=== PATIENT | female | born 1985 | race American Indian/Alaskan Native ===

== ENCOUNTER 2017-05-30 23:28 | Emergency (ER) | payer OTHER ==
--- NOTE | 2017-05-31 05:31 | Emergency Department Report ---
Abscess Boil HPI - HPI Chief Complaint: Skin/Abscess/Foreign Body Stated Complaint: ABSCESS ON BUTTOCKS Time Seen by Provider: 05/31/17 02:30 Duration: 3 Days Location: Perianal (right) Severity: Severe History: Yes Pain, Yes Purulent Drainage (thick white drainage), No Fever, No Numbness, No Foreign Body, No Previous History, No Insect Bite HPI: This is a 31 y.o. female presenting with abscess to right buttock. Patient states she tried using a heating pad and epson salt to aid in drainage. She had one of these before in upper inner thigh and don't remember it being this bad. States she is unable to sit down and the pain is 10/10 on pain scale. Home Medications: Previous Rx's Medication Instructions Recorded Last Taken Type Sulfamethoxazole/Trimethoprim 1 each PO BID 10 Days #20 tablet 05/31/17 Unknown Rx [Bactrim Ds Tablet] Allergies/Adverse Reactions: Allergies Allergy/AdvReac Type Severity Reaction Status Date / Time No Known Allergies Allergy Unverified 05/30/17 23:38 ED Review of Systems ROS: Stated complaint: ABSCESS ON BUTTOCKS Other details as noted in HPI Constitutional: no symptoms reported, see HPI. denies: chills, diaphoresis, fever, malaise, weakness Respiratory: no symptoms reported, see HPI. denies: cough, orthopnea, shortness of breath, SOB with exertion, SOB at rest, stridor, wheezing Cardiovascular: as per HPI. denies: chest pain, palpitations, dyspnea on exertion, orthopnea, edema, syncope, paroxysmal nocturnal dyspnea Skin: as per HPI, lesions (abscess to right perianal area ). denies: rash, change in color, change in hair/nails, pruritus Neurological: as per HPI. denies: headache, weakness, numbness, paresthesias, confusion, abnormal gait, vertigo ED Past Medical Hx - Past Medical History Previous Medical History?: Yes Additional medical history: Herpes - Surgical History Past Surgical History?: Yes Additional Surgical History: c section, - Social History Smoking Status: Current Every Day Smoker Substance Use Type: Alcohol - Medications Home Medications: Home Medications Medication Instructions Recorded Confirmed Last Taken Type Sulfamethoxazole/Trimethoprim 1 each PO BID 10 Days #20 tablet 05/31/17 Unknown Rx [Bactrim Ds Tablet] ED Abscess Boil Physical Exam - Exam General: Vital signs noted. No distress. Alert and acting appropriately. Size: 5 cm (5 cm nodule to right perinal, erythematous, tender to palpation) Exam: Yes Tenderness, Yes Fluctuance, Yes Surrounding Cellulites/Erythema, Yes Normal Neurologic Exam, Yes Normal Circulation, No Lymphangitis, No Crepitation , No Heart Murmur I & D Note - I & D Note I & D Note: Patient positioned appropriately, 5 cc lidocaine without epi was used as a local anesthetic. #11 blade scalpal used for single incision. Additional local anesthetic injected into surrounding viable tissue. Copius drainage of pus. Wound packed with iodoform gauze. Procedure tolerated without complications. Wound dressed with nonadhesive gauze, 4x4 guaze and paper tape. ED Course Vital Signs 05/30/17 23:33 Temperature 98.6 F Pulse Rate 108 H Respiratory 18 Rate Blood Pressure 140/99 O2 Sat by Pulse 99 Oximetry Vital Signs 05/30/17 05/31/17 23:33 05:43 Temperature 98.6 F Pulse Rate 108 H 91 H Respiratory 18 18 Rate Blood Pressure 140/99 Blood Pressure 138/94 [Left] O2 Sat by Pulse 99 99 Oximetry Critical care attestation.: If time is entered above; I have spent that time in minutes in the direct care of this critically ill patient, excluding procedure time. ED Disposition Clinical Impression: Abscess, perianal Disposition: [id number] TO HOME OR SELFCARE Is pt being admited?: No Does the pt Need Aspirin: No Condition: Stable Instructions: Abscess Incision and Drainage (ED) Additional Instructions: Complete antibiotics as prescribed twice a day for 10 days. Return to ER in 7 days for recheck and packing removal. Return to ER if pus drainage, odor, fever, and discoloration to wound. Wash hands frequently before and after caring for wound. Prescriptions: Sulfamethoxazole/Trimethoprim [Bactrim Ds Tablet] 1 each PO BID 10 Days #20 tablet Referrals: [facility] [Outside] - 3-5 Days [facility] [Outside] - 3-5 Days Time of Disposition: 05:46 Print Language: NIUEAN
[2017-05-31 05:43] VITALS: BP 138/94
== END 2017-05-31 05:52 | disposition home or self-care (01) ==
LOC: ED 23:28
DX: K61.0 Anal abscess (principal); F17.200 Nicotine dependence, unspecified, uncomplicated; Z98.890 Other specified postprocedural states

== ENCOUNTER 2017-10-09 13:11 | Emergency (ER) | payer OTHER, MEDICAID ==
[2017-10-09 13:19] VITALS: BP 167/112
[2017-10-09] MEDS ORDERED: TORADOL IM ONE (14:31)
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
== END 2017-10-09 14:53 | disposition home or self-care (01) ==
LOC: ED 13:11
DX: M54.6 Pain in thoracic spine (principal); I10 Essential (primary) hypertension; E11.9 Type 2 diabetes mellitus without complications; F17.200 Nicotine dependence, unspecified, uncomplicated
CPT/HCPCS: 99281; J1885